=== PATIENT | male | born 1965 | race Caucasian/White ===

== ENCOUNTER 2021-05-22 06:16 | Emergency (ER) | payer OTHER ==
[~2021-05-22] VITALS: Ht 182.9 cm; Wt 79.5 kg
--- NOTE | 2021-05-22 07:17 | PHYS DOC ---
General Adult EDM: Chief Complaint: DENTAL PROBLEM HPI: HPI: Patient is a 55 year old male here with right lower dental pain, he has had this pain for multiple weeks. He saw a dentist last week, he was prescribed oral amoxicillin. He was told to go see his primary care doctor to discuss possibly take being taken off his Xarelto before dental procedure. The patient has made no attempt to contact his primary care doctor for this purpose. He purposely stopped taking Xarelto 2 days ago. He denies any new changes in his dental pain today, he was not given any pain medication reportedly, and he is here for pain medication. He denies fevers or chills, sore throat, difficulty breathing, facial or oral swelling. Denies chest pain, dyspnea. Denies abdominal pain. Denies nausea or vomiting. He has a history of stroke and PE. He continues to smoke tobacco. He reports that he just obtained this new primary care doctor, he is unable to remember the name, but he does have access to their office, should he be motivated to do so. He was hoping to avoid going to his doctor to get medical clearance to have a dental procedure done. Review of Systems: Review of Systems: Constitutional: Denies fever or chills. [] Eyes: Denies change in visual acuity. [] HENT: Denies nasal congestion or sore throat. Denies voice changes or difficulty swallowing. Dental pain Respiratory: Chronic but unchanged nonproductive cough. Denies dyspnea Cardiovascular: Denies chest pain or edema. [] GI: Denies abdominal pain, nausea, vomiting Musculoskeletal: Denies neck pain. Neurologic: Denies headache, focal weakness or sensory changes. [] Psychiatric: Denies depression or anxiety. [] Heart Score: C/O Chest Pain: No Risk Factors: Risk Factors: DM, Current or recent (<one month) smoker, HTN, HLP, family his tory of CAD, obesity. Risk Scores: Score 0 - 3: 2.5% MACE over next 6 weeks - Discharge Home Score 4 - 6: 20.3% MACE over next 6 weeks - Admit for Clinical Observation Score 7 - 10: 72.7% MACE over next 6 weeks - Early Invasive Strategies Physical Exam: PE: Constitutional: Well developed, well nourished, no acute distress, non-toxic appearance. [] HENT: Normocephalic, atraumatic, oropharynx is patent and clear, mucous membranes are moist. Severe caries scattered throughout. Multiple dental caries, with small necrotic areas of residual teeth noted in the right lower gingiva. Moderate gingivitis noted throughout. No facial edema. No drooling no trismus. Uvula is midline. No oral or tongue edema. Speaks in full and clear sentences, controlling secretions well Eyes: Conjunctiva normal, no discharge. [] Neck: Trachea midline, no meningismus, no tenderness, no palpable pathology adenopathy, full range of motion Cardiovascular: Regular rate and rhythm, no edema, well-perfused Lungs & Thorax: Bilateral breath sounds clear to auscultation, no rales, rhonchi or wheezes, no stridor, speaks in full and clear sentences Skin: Warm, dry, no erythema, no rash. [] Extremities: No limb edema, no deformity, ambulatory with a steady and nonantalgic gait Neurologic:, Alert, oriented x3, no facial asymmetry, speech is clear and fluent, gross motor intact, gait is steady, no ataxia Psychologic: Affect normal, judgement normal, mood normal. [] EKG: EKG: [] Radiology/Procedures: Radiology/Procedures: [] Course & Med Decision Making: Course & Med Decision Making P.o. Nye given for pain here. He already has a prescription for antibiotics. I told him to take these as directed. I explained that he absolutely, unequivocally, must see his primary care physician for medical clearance and for further follow-up. I do not recommend stopping life-saving anticoagulant medication without medical direction to do so. I warned him that he should stop smoking, as this will not only worsen his risk for stroke, [place], but also will continue to put him at risk for oral infections, as he demonstrates today. I told him that he must contact his PCP, I recommend that he contact them today to arrange for close follow-up. He should also follow-up with his dentist for more definitive care of his dental pain and gingivitis and dental caries. He is given a prescription for a small amount of Nye for discharge home, in addition to oral Peridex mouthwash. Return precautions are given. Sanjana Disclaimer: Sanjana Disclaimer: This electronic medical record was generated, in whole or in part, using a voice recognition dictation system. Departure Departure Impression: Primary Impression: Pain due to dental caries Additional Impression: Gingivitis Disposition: HOME / SELF CARE / HOMELESS Condition: STABLE Referrals: NO PCP (PCP) Patient Instructions: Dental Caries, Dental Pain, Gingivitis Additional Instructions: Take the full course of antibiotics as you are prescribed by your dentist. Use the pain medication and oral mouthwash as directed. You must absolutely contact your primary care doctor before stopping any of your medications, they will need to provide your medical clearance before proceeding with any dental procedure with your dentist. Return to the ER for difficulty breathing, inability control secretions, problems swallowing, if you develop severe facial swelling, problems opening and closing your mouth or for any other concerns. Please stop smoking tobacco. Follow-up with your doctor and dentist as scheduled Scripts Chlorhexidine Gluconate (PERIDEX) 15 Ml Mouthwash 15 ML PO BID for 10 Days, #480 ML 0 Refills swish and spit, do not swallow Prov: NOLAN PEMBERTON DO 05/22/21 Hydrocodone Bit/Acetaminophen (HYDROCODONE-APAP 5-325 ) 1 Tab Tablet 1 TAB PO PRN Q6HRS PRN for PAIN, #15 TAB 0 Refills Prov: NOLAN PEMBERTON DO 05/22/21 NOLAN PEMBERTON DO May 22, 2021 07:17
[2021-05-22 07:18] VITALS: BP 165/83
[2021-05-22] MEDS ORDERED: HYDROcodone/APAP 5/325MG 1 TAB TABLET PO ONE (07:30)
[2021-05-22] MEDS ORDERED: HYDR-2761 PO ×2 (07:38→07:41)
[2021-05-22] MEDS ORDERED: CHLO15MO2 PO (07:41)
== END 2021-05-22 07:50 | disposition home or self-care (01) ==
LOC: ER 06:16
DX: K05.10 Chronic gingivitis, plaque induced (principal); K02.9 Dental caries, unspecified
CPT/HCPCS: 99283